=== PATIENT | male | born 1970 | race Hispanic/Latino ===

== ENCOUNTER 2017-01-06 03:59 | Emergency (ER) | payer MEDICAID ==
[2017-01-06 04:15] VITALS: PULSE 97
--- NOTE | 2017-01-06 04:19 | C.PDOC ---
History Of Present Illness pt found inebriated denies any complaints. non suicidal or homicidal Time Seen by Provider: 01/06/17 04:18 Chief Complaint (Nursing): Substance Abuse History Per: Patient History/Exam Limitations: no limitations Onset/Duration Of Symptoms: Unknown Current Symptoms Are (Timing): Still Present Suicide/Self Injury Attempted (Context): None Modifying Factor(s): Alcohol Severity: Mild Pain Scale Rating Of: 2 Associated Symptoms: denies: Anger, Anxiety, Agitation Involuntary Hold By: None Recent travel outside of the [place]: No Additional History Per: Patient Past Medical History Reviewed: Historical Data, Nursing Documentation, Vital Signs Vital Signs: Last Vital Signs Temp 98.0 F 01/06/17 12:11 Pulse 97 H 01/06/17 06:35 Resp 18 01/06/17 12:11 BP 109/84 01/06/17 12:11 Pulse Ox 98 01/08/17 20:07 Family History: States: No Known Family Hx - Social History Hx Alcohol Use: Yes Hx Substance Use: No (Denies) - Immunization History Hx Tetanus Toxoid Vaccination: No Hx Influenza Vaccination: No Hx Pneumococcal Vaccination: No Review Of Systems Constitutional: Negative for: Fever ENT: Negative for: Throat Pain Cardiovascular: Negative for: Chest Pain Respiratory: Positive for: Shortness of Breath Gastrointestinal: Negative for: Nausea, Vomiting Genitourinary: Negative for: Hematuria Musculoskeletal: Negative for: Neck Pain Skin: Negative for: Rash, Lesions Neurological: Negative for: Weakness Psych: Negative for: Anxiety Physical Exam - Physical Exam Appears: Non-toxic, No Acute Distress Skin: Warm, Dry Head: Normacephalic Eye(s): bilateral: Normal Inspection Oral Mucosa: Moist Chest: Symmetrical Cardiovascular: Rhythm Regular Respiratory: No Rales, No Rhonchi Gastrointestinal/Abdominal: Soft, No Tenderness Back: Normal Inspection Extremity: Normal ROM Neurological/Psych: Oriented x3, Normal Speech, Normal Cognition Gait: Unsteady ED Course And Treatment O2 Sat by Pulse Oximetry: 98 Pulse Ox Interpretation: Normal ED OBSERVATION Discharge: Yes Date of observation admission: 01/06/17 Time of observation admission: 04:21 - Observation admission statement Patient is being placed in observation because:: acute alcohol intoxication - Goals of Observation Goals of observation are:: sobriety - Progress Note Progress Note: 01/06/17 04:21 vitals stable Disposition Counseled Patient/Family Regarding: Studies Performed, Diagnosis - Disposition Referrals: [facility] [Outside] Disposition: HOME/ ROUTINE Disposition Time: 04:18 Condition: FAIR Instructions: Alcohol Intoxication (DC) Print Language: THAI - Clinical Impression Clinical Impression: Alcohol intoxication Physician Patient Turnover Patient Signed Over To: Veronika Marte Handoff Comments: pending ct Decision To Admit - Pt Status Changed To: Hospital Disposition Of: Observation - . Bed Request Type: ED Observation Patient Diagnosis: Alcohol intoxication
[2017-01-06 12:12] VITALS: BP 109/84; RESP 18; TEMP 98; O2SAT 98
== END 2017-01-06 12:51 | disposition home or self-care (01) ==
LOC: C.ER 03:59
DX: F10.129 Alcohol abuse with intoxication, unspecified (principal)